=== PATIENT | male | born 1995 | race American Indian/Alaskan Native ===

== ENCOUNTER 2017-12-08 21:03 | Emergency (ER) | payer SELFPAY ==
[2017-12-08 21:24] VITALS: BP 126/66
== END 2017-12-08 23:25 | disposition left against medical advice (07) ==
LOC: ED 21:03
DX: R42 Dizziness and giddiness (principal); Z53.21 Procedure and treatment not carried out due to patient leaving prior to being seen by health care provider
CPT/HCPCS: 87116; 87430; 93005; 93010

== ENCOUNTER 2017-12-30 08:08 | Emergency (ER) | payer SELFPAY ==
[2017-12-30 08:20] VITALS: BP 107/69
[2017-12-30] MEDS ORDERED: TYLENOL #3 PO ONE (11:19)
[2017-12-30] MEDS ORDERED: ZOFRAN ODT PO ONE (11:19)
--- NOTE | 2017-12-30 11:43 | Emergency Department Report ---
ED General Adult HPI - General Chief complaint: Back Pain/Injury Stated complaint: CHEST/BACK PAIN Time Seen by Provider: 12/30/17 10:59 Source: patient Mode of arrival: Ambulatory Limitations: No Limitations - History of Present Illness Initial comments: Patient presents to the emergency department with a chief complaint of back pain and chest pain as well as a sore throat. Patient states he has had back and chest pain for the last 2 weeks that he describes as pulling sensation and worse upon awakening. 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 Patient also complains of a sore throat 2-3 weeks. Upon further investigation it was discovered that the patient was bitten by 5 tics 3 weeks ago -: Gradual Location: chest, back Radiation: non-radiation Severity scale (0 -10): 5 Quality: aching Consistency: constant Improves with: none Worsens with: movement Associated Symptoms: denies other symptoms, confusion Treatments Prior to Arrival: none - Related Data Previous Rx's Medication Instructions Recorded Last Taken Type Doxycycline [Vibramycin CAP] 100 mg PO Q12HR #20 capsule 12/30/17 Unknown Rx traMADol [Ultram] 50 mg PO Q6HR PRN #24 tablet 12/30/17 Unknown Rx Allergies Allergy/AdvReac Type Severity Reaction Status Date / Time No Known Allergies Allergy Verified 12/30/17 08:18 ED Review of Systems ROS: Stated complaint: CHEST/BACK PAIN Other details as noted in HPI Comment: All other systems reviewed and negative Constitutional: denies: chills, fever Eyes: denies: eye pain, eye discharge, vision change ENT: denies: ear pain, throat pain Respiratory: cough. denies: shortness of breath, SOB with exertion, SOB at rest , wheezing Cardiovascular: chest pain. denies: palpitations Endocrine: no symptoms reported Gastrointestinal: denies: abdominal pain, nausea, diarrhea Genitourinary: denies: urgency, dysuria Musculoskeletal: back pain. denies: joint swelling, arthralgia Skin: denies: rash, lesions Neurological: denies: headache, weakness, paresthesias Psychiatric: denies: anxiety, depression Hematological/Lymphatic: denies: easy bleeding, easy bruising ED Past Medical Hx - Past Medical History Previous Medical History?: No - Surgical History Past Surgical History?: No - Social History Smoking Status: Current Every Day Smoker Substance Use Type: None - Medications Home Medications: Home Medications Medication Instructions Recorded Confirmed Last Taken Type Doxycycline [Vibramycin CAP] 100 mg PO Q12HR #20 capsule 12/30/17 Unknown Rx traMADol [Ultram] 50 mg PO Q6HR PRN #24 tablet 12/30/17 Unknown Rx ED Physical Exam - General Limitations: No Limitations General appearance: alert, in no apparent distress - Head Head exam: Present: atraumatic, normocephalic - Eye Eye exam: Present: normal appearance, PERRL, EOMI - ENT ENT exam: Present: mucous membranes moist, other (patient has pedal or mucosal. [place] tonsils are without erythema or exudate) - Neck Neck exam: Present: normal inspection - Respiratory Respiratory exam: Present: normal lung sounds bilaterally. Absent: respiratory distress, wheezes, rales, rhonchi, stridor - Cardiovascular Cardiovascular Exam: Present: regular rate, normal rhythm. Absent: systolic murmur, diastolic murmur, rubs, gallop - GI/Abdominal GI/Abdominal exam: Present: soft, normal bowel sounds. Absent: distended, tenderness - Rectal Rectal exam: Present: deferred - Extremities Exam Extremities exam: Present: normal inspection - Back Exam Back exam: Present: normal inspection, other (tenderness to palpation of the parathoracic region) - Neurological Exam Neurological exam: Present: alert, oriented X3, CN II-XII intact. Absent: motor sensory deficit - Psychiatric Psychiatric exam: Present: normal affect, normal mood - Skin Skin exam: Present: warm, dry, intact, normal color. Absent: rash ED Course Vital Signs 12/30/17 08:18 Temperature 98.7 F Pulse Rate 74 Respiratory 16 Rate Blood Pressure 107/69 O2 Sat by Pulse 100 Oximetry ED Medical Decision Making - Lab Data Result diagrams: 12/30/17 11:43 12/30/17 11:43 - EKG Data EKG shows normal: sinus rhythm Rate: normal - EKG Data When compared to previous EKG there are: no significant change Interpretation: other (diffuse ST elevation of the lateral leads consistent with early repol) - Medical Decision Making Discussed results with patient We will treat the patient with doxycycline for the tick exposure Patient is now pain free after medications in the Emergency Department Patient did not have a target lesion on the exam Critical care attestation.: If time is entered above; I have spent that time in minutes in the direct care of this critically ill patient, excluding procedure time. ED Disposition Clinical Impression: Pleurisy, Back pain, Tick bite Disposition: - TO HOME OR SELFCARE Is pt being admited?: No Does the pt Need Aspirin: No Condition: Stable Instructions: Pleurisy (ED), Back Pain (ED), Tick Bite (ED) Additional Instructions: return if worse Prescriptions: Doxycycline [Vibramycin CAP] 100 mg PO Q12HR #20 capsule traMADol [Ultram] 50 mg PO Q6HR PRN #24 tablet PRN Reason: Pain Referrals: PRIMARY CARE, [Primary Care Provider] - 3-5 Days Time of Disposition: 12:50
--- NOTE | 2017-12-30 11:46 | XRay Report ---
ROUTINE CHEST, TWO VIEWS: HISTORY: Cough. Infiltrate is identified in the lateral segment of the left lower lobe. The remainder of the lungs are clear. Normal heart and mediastinal structures. Normal bony structures. IMPRESSION: Left lower lobe pneumonia.
[2017-12-30 11:55] LABS: Basophils # (Auto) 0.1 K/mm3 (0.0-0.1); Basophils % (Auto) 0.4 % (0.0-1.8); Eosinophils % (Auto) 0.3 % (0.0-4.3); Hematocrit 44.3 % (35.5-45.6); Hemoglobin 15.4 gm/dl (11.8-15.2); Lymphocytes # (Auto) 1.4 K/mm3 (1.2-5.4); Lymphocytes % (Auto) 9.5 % (13.4-35.0); Mean Corpuscular HGB Conc 35 % (32-34); Mean Corpuscular Hemoglobin 31 pg (28-32); Mean Corpuscular Volume 89 fl (84-94); Monocytes % (Auto) 6.7 % (0.0-7.3); Platelet Count 269 K/mm3 (140-440); Red Blood Count 4.96 M/mm3 (3.65-5.03); Red Cell Distribution Width 12.8 % (13.2-15.2)
[2017-12-30 12:11] LABS: Alanine Aminotransferase 14 units/L (7-56); Albumin 3.9 g/dL (3.9-5); Blood Urea Nitrogen 9 mg/dL (9-20); Hemolysis Index 15
[2017-12-30 12:32] LABS: BUN/Creatinine Ratio 9; Calcium 9.8 mg/dL (8.4-10.2)
== END 2017-12-30 12:50 | disposition home or self-care (01) ==
LOC: ED 08:08
DX: T14.8XXA Other injury of unspecified body region, initial encounter (principal); R09.1 Pleurisy; M54.9 Dorsalgia, unspecified; F17.200 Nicotine dependence, unspecified, uncomplicated; W57.XXXA Bitten or stung by nonvenomous insect and other nonvenomous arthropods, initial encounter; Y93.89 Activity, other specified; Y92.89 Other specified places as the place of occurrence of the external cause; Y99.8 Other external cause status
CPT/HCPCS: 36415; 71046; 80053; 85025; 93005; 93010; 99284; Q0162